=== PATIENT | male | born 1950 | race Caucasian/White ===

== ENCOUNTER 2024-06-08 08:53 | Emergency (ER) | payer MEDICARE, OTHER ==
[2024-06-08] MEDS ORDERED: Sodium Chloride 0.9% 10 ML Syringe FLUSH PRN (09:04)
[2024-06-08 09:11] LABS: BASOPHILS ABSOLUTE AUTO 0.1 x10^3/uL (0.0-0.2); BASOPHILS PERCENT AUTO 0.7 % (0.2-1.2); EOSINOPHILS ABSOLUTE AUTO 0.2 x10^3/uL (0.0-0.5); EOSINOPHILS PERCENT AUTO 3.2 % (0.0-4.0); HEMOGLOBIN 16.6 g/dL (14.0-18.0); IMMATURE GRAN ABSOLUTE AUTO 0.02 x10^3/uL (0.00-0.07); LYMPHOCYTES ABSOLUTE AUTO 2.4 x10^3/uL (1.0-4.8); LYMPHOCYTES PERCENT AUTO 33.1 % (25.0-50.0); MEAN CORPUSCULAR HEMOGLOBIN 30.5 pg (26.0-32.0); MEAN CORPUSCULAR HGB CONC 33.9 g/dL (32.0-36.0); MEAN CORPUSCULAR VOLUME 90.1 fL (78.0-93.0); MONOCYTES PERCENT AUTO 13.3 % (2.0-11.0); NEUTROPHILS ABSOLUTE AUTO 3.5 x10^3/uL (1.8-7.7); NEUTROPHILS PERCENT AUTO 49.4 % (50.0-80.0); PLATELET COUNT,PLT 188 x10^3/uL (130-400); RED BLOOD CELL COUNT 5.44 x10^6/uL (4.5-6.0); WHITE BLOOD CELL COUNT,WBC 7.1 x10^3/uL (4.0-10.0)
[2024-06-08 09:24] LABS: A/G RATIO 0.97; ALANINE AMINOTRANSFERASE,ALT 31 U/L (16-63); ALBUMIN 3.7 g/dL (3.4-5.0); ALKALINE PHOSPHATASE 68 U/L (46-116); ASPARTATE AMNIOTRANSFERASE,AST 21 U/L (15-37); BILIRUBIN TOTAL 0.8 mg/dL (0.2-1.0); BLOOD UREA NITROGEN,BUN 19 mg/dL (7-18); CALCIUM 9.6 mg/dL (8.5-10.1); CARBON DIOXIDE,CO2 29 mmol/L (21-32); CHLORIDE,CL 103 mmol/L (98-107); CREATININE 1.3 mg/dL (0.70-1.30); GLUCOSE RANDOM 105 mg/dL (70-99); POTASSIUM,K 4.2 mmol/L (3.5-5.1); PROTEIN TOTAL,TP 7.5 g/dL (6.4-8.2); SODIUM,NA 140 mmol/L (136-145)
[2024-06-08 09:27] LABS: ANION GAP 12.2 mmol/L (5-15); C-REACTIVE PROTEIN < 0.50 mg/dL (<=0.50); ESTIMATED GFR 58 mL/min (>=60); ETHANOL BLOOD MEDICAL < 3 mg/dL (0-3)
[2024-06-08] MEDS: Labetalol 20 MG/4 ML Syringe IVPUSH ONE ×2 (09:27→10:12)
[2024-06-08] MEDS: Iopamidol 755 Mg/ML 100 ML Bottle IVPUSH ONE (10:21)
== END 2024-06-08 11:10 | disposition short-term general hospital (02) ==
LOC: VM.ED 08:53
DX: I63.9 Cerebral infarction, unspecified (principal); F17.200 Nicotine dependence, unspecified, uncomplicated; Z85.46 Personal history of malignant neoplasm of prostate; Z91.030 Bee allergy status
CPT/HCPCS: 70450; 70496; 80053; 80307; 83735; 84484; 85025; 86140; 93005; 93010; 96374; 96376; 99284; 99285-25; J1920; Q9967

== ENCOUNTER 2024-09-30 09:34 | Day surgery (SDC) | payer MEDICARE, MEDICAID ==
[~2024-09-30 09:34] MED LIST: Proparacaine 0.5% Ophth Soln 15 ML Bottle ONE; Sodium Chloride 0.9% 10 ML Syringe FLUSH PRN
[2024-09-30] MEDS ORDERED: fentaNYL 100 MCG/2 ML SDV ONE (10:48)
[2024-09-30] MEDS ORDERED: Midazolam 1 MG/ML 2 ML SDV ONE (10:48)
[2024-09-30] MEDS ORDERED: Propofol 200 MG/20 ML SDV ONE (11:25)
[2024-09-30] MEDS: Povidone-Iodine 5% Sterile Ophth Soln 30 ML Bottle EYERT ONE (11:48)
[2024-09-30] MEDS: Lidocaine 1% with EPINEPHrine 1:100,000 30 ML MDV INFILT ONE (11:48)
== END 2024-09-30 12:45 | disposition home or self-care (01) ==
LOC: VM.SDS 09:34
PROVIDERS: ATTEND Ophthalmology
DX: H02.102 Unspecified ectropion of right lower eyelid (principal); E78.2 Mixed hyperlipidemia; Z79.82 Long term (current) use of aspirin; Z79.899 Other long term (current) drug therapy; Z91.030 Bee allergy status
CPT/HCPCS: 67917; J2250; J2704; J3010; J3490